=== PATIENT | female | born 1980 | race Caucasian/White ===

== ENCOUNTER 2017-01-03 17:29 | Emergency (ER) ==
[2017-01-03 17:38] VITALS: BP 114/83; TEMP 98.6; BMI 28.3
[2017-01-03] MEDS ORDERED: LIDOCAINE 1 % AMP 5 ML (SUTURES) ONE (17:45)
[2017-01-03] MEDS ORDERED: TETANUS DIPHTHERIA TOXOIDS IM ONE ×2 (18:29→18:56)
[2017-01-03] MEDS ORDERED: LIDOCAINE 1 % AMP 5 ML (SUTURES) SUBCUT STA (18:30)
--- NOTE | 2017-01-03 18:32 | ED.PDOC ---
General ED Provider: Dr. CAROL PARKS Chief Complaint: Knee Pain/Injury Stated Complaint: knee injury and laceration right knee Time Seen by Physician: 17:30 Mode of Arrival: Walk-In Information Source: Patient Exam Limitations: No limitations Primary Care Provider: JAROCHO AMARO Nursing and Triage Documentation Reviewed and Agree: Yes Review of Systems - Review Of Systems Constitutional: Reports: No symptoms Eyes: Reports: No symptoms Ears, Nose, Mouth, Throat: Reports: No symptoms Respiratory: Reports: No symptoms Cardiac: Reports: No symptoms GI: Reports: No symptoms : Reports: No symptoms Musculoskeletal: Reports: No symptoms Skin: Reports: Other (laceration see photos) Neurological: Reports: No symptoms Endocrine: Reports: No symptoms Hematologic/Lymphatic: Reports: No symptoms All Other Systems: Reviewed and Negative Past Medical History - Past Medical History Previously Healthy: Yes Endocrine: Reports: None Cardiovascular: Reports: None Respiratory: Reports: None Hematological: Reports: None Gastrointestinal: Reports: None Genitourinary: Reports: None Neuro/Psych: Reports: None Musculoskeletal: Reports: Back Pain Cancer: Reports: None Last Menstrual Period: 5 YEARS AGO - Surgical History General Surgical History: Reports: Orthopedic - Family History Family History: Reports: Unknown - Social History Smoking Status: Never smoker Hx Substance Use: No Alcohol Screening: None - Immunizations Tetanus Shot up to Date: No Physical Exam - Physical Exam Appearance: Well-appearing, No pain distress, Well-nourished Eyes: GOYO, EOMI, Conjunctiva clear ENT: Ears normal, Nose normal, Oropharynx normal Respiratory: Airway patent, Breath sounds clear, Breath sounds equal, Respirations nonlabored Cardiovascular: RRR, Pulses normal, No rub, No murmur GI/: Soft, Nontender, No masses, Bowel sounds normal, No Organomegaly Musculoskeletal: Limited ROM (right knee please see photos) Skin: Warm, Dry, Normal color Neurological: Sensation intact, Motor intact, Reflexes intact, Cranial nerves intact, Alert, Oriented Psychiatric: Affect appropriate, Mood appropriate Procedures - Laceration/Wound Repair No standard instances Wound Description: Linear Wound Length (cm): 1.5 cm Wound Width: 3mm Wound Depth: 2mm Wound Explored: Clean Wound Irrigated: No Wound Prep: Saline, Hibiclens Anesthesia: Lidocaine (plain 4 ml) Wound Margins: Revised Wound Repaired With: Sutures Suture Size and Type: 3 nylon Number of Sutures: 6 Number of [place]: 0 Layer Closure?: No (please see photos before and after ) Critical Care Note - Critical Care Note Total Time (mins): 0 Course - Course Orders, Labs, Meds: Orders Category Date Time Status Lidocaine HCl/Pf [Lidocaine 1 % Amp 5 ml (Sutures)] MEDS 01/03/17 17:45 Discontinued 5 ml .ROUTE .STK-MED ONE Tetanus, Diphtheria Tox,Adult [Tetanus Diphtheria MEDS 01/03/17 18:29 Once Toxoids] 0.5 ml IM .ONCE ONE KNEE, RIGHT 4 VIEWS Stat RADS 01/03/17 18:29 Ordered Medications Generic Name Dose Route Start Last Admin Trade Name Freq PRN Reason Stop Dose Admin Tetanus/Diphtheria Toxoids 0.5 ml 01/03/17 18:29 Tetanus Diphtheria Toxoids IM 01/03/17 18:30 .ONCE ONE Vital Signs: Temp Pulse Resp BP Pulse Ox 01/03/17 17:30 98.6 F 86 20 114/83 97 Departure - Departure Time of Disposition: 18:33 Disposition: HOME SELF-CARE Discharge Problem: Knee pain, Injury of knee Laceration of right knee Qualifiers: Encounter type: initial encounter Qualifier Code: (S81.011A) Laceration without foreign body, right knee, initial encounter Instructions: Knee Pain (ED), Laceration (ED) Condition: Good Pt referred to PMD for follow-up: Yes Additional Instructions: Please call your Family Physician as soon as possible to schedule a follow-up appointment. Prescriptions: Hydrocodone/Acetaminophen [[place] 10-325 Tablet] 1 each PO Q8HR #7 tablet Allergies/Adverse Reactions: Allergies No Known Allergies Allergy (Verified 01/03/17 17:40) Home Medications: Ambulatory Orders Levonorgestrel [Mirena] 1 each VAGINAL DIRECTED 01/05/13 Hydrocodone/Acetaminophen [[place] 10-325 Tablet] 1 each PO Q8HR #7 tablet
--- NOTE | 2017-01-04 07:42 | DI ---
EXAM: Four views of the right knee HISTORY: Trauma/laceration. COMPARISON: Left knee x-rays 06/04/2012 FINDINGS: Medial compartment is mildly narrowed. The lateral compartment is unremarkable. The enciso lla is normal in position and appearance. There is no lytic or blastic lesion. No fracture or disl ocation is identified. The soft tissues are unremarkable. IMPRESSION: Minimal medial compartmental narrowing
== END 2017-01-03 18:54 | disposition home or self-care (01) ==
LOC: ED 17:29
DX: S81.011A Laceration without foreign body, right knee, initial encounter (principal); M25.561 Pain in right knee
CPT/HCPCS: 90471; 99283

== ENCOUNTER 2017-01-10 08:33 | Outpatient (CLI) ==
--- NOTE | 2017-01-10 11:41 | MRI ---
EXAM: MRI of the right knee without contrast COMPARISON: Right knee radiographs 01/03/2017. HISTORY: Right knee pain with decreased range of motion. Healing wound in the region of the patell a after falling on a cinder block. TECHNIQUE: Multiplanar noncontrast MR images of the right knee were acquired using a 1.2 Verna magn et. FINDINGS: There is intrasubstance degeneration of the medial meniscus without a surfacing tear. In trasubstance degeneration of the lateral meniscus with a radial tear involving the free edge at the body through the anterior horn/body junction as seen on image 5 of the sagittal series and image 20 of the axial series. Intact anterior and posterior cruciate ligament fibers are identified. The medial collateral ligame nt, lateral collateral ligament complex and posterolateral corner ligaments are intact. Mild distal quadriceps and minimal patellar tendinosis. No abnormal subluxation of the patella. Subcutaneous edema anteriorly, medially and laterally with ill-defined subcutaneous fluid anteriorly related to s oft tissue contusion. No focal drainable fluid collection. Thinning and deep fissuring of the cartilage along the lateral facet and median ridge of the patella with a 3 mm cartilage flap. Subchondral edema that site. No evidence of an acute fracture. Cysti c degenerative changes within the posteromedial aspect of the medial femoral condyle. Small joint e ffusion. Slit-like popliteal cyst. No osteochondral body within the joint. IMPRESSION: 1. Radial tear involving the lateral meniscus as described. Correlate with physical examination. 2. Patellar chondrosis with flap formation. 3. Patellar/quadriceps tendinosis. 4. Subcutaneous edema and ill-defined subcutaneous fluid anteriorly without a drainable fluid colle ction. 5. Small joint effusion. Slit-like popliteal cyst.
== END 2017-01-10 08:34 | disposition home or self-care (01) ==
LOC: RAD 08:33
PROVIDERS: ATTEND Family Medicine
DX: M25.561 Pain in right knee (principal)

== ENCOUNTER 2017-07-12 08:36 | Emergency (ER) ==
[2017-07-12 08:40] VITALS: BP 126/76; TEMP 97.7; BMI 30.7
--- NOTE | 2017-07-12 09:19 | DI ---
EXAM: Three views of the left ankle. History: Left ankle trauma. Findings: No acute fracture or dislocation. No abnormal calcifications or radiopaque foreign bodies . Joint spaces are preserved. Impression: No acute osseous abnormalities
--- NOTE | 2017-07-12 09:20 | DI ---
EXAM: Three views of the left foot. History: Left foot trauma. Findings: No acute fracture or dislocation. No abnormal calcifications or radiopaque foreign bodies . Joint spaces are preserved. Impression: No acute osseous abnormality
--- NOTE | 2017-07-12 09:27 | ED.PDOC ---
General ED Provider: Dr. CAROL PARKS Chief Complaint: Ankle Pain/Injury Stated Complaint: ankle pain Time Seen by Physician: 08:40 (has been walking on it x 14 days ) Mode of Arrival: Walk-In Information Source: Patient Exam Limitations: No limitations Primary Care Provider: JAROCHO AMARO Referred to ED by: Other (no new injury ) Nursing and Triage Documentation Reviewed and Agree: Yes (seen with edison at all times ) Reviewed sepsis parameters & appropriate labs ordered?: Yes (injury was aabout 2 weks ago) System Inflammatory Response Syndrome: Not Applicable Sepsis Protocol: For patient's 13 years and over: Temp is 96.8 and below OR 101 and greater Pulse >90 BPM Resp >20/minute Acutely Altered Mental Status Are patient's symptoms suggestive of a new infection, such as: -Pneumonia -Skin, Soft Tissue -Endocarditis -UTI -Bone, Joint Infection -Implantable Device -Acute Abdominal Infection -Wound Infection -Meningitis -Blood Stream Catheter Infection -Unknown System Inflammatory Response Syndrome: Not Applicable Review of Systems - Review Of Systems Constitutional: Reports: No symptoms Eyes: Reports: No symptoms Ears, Nose, Mouth, Throat: Reports: No symptoms Respiratory: Reports: No symptoms Cardiac: Reports: No symptoms GI: Reports: No symptoms : Reports: No symptoms Musculoskeletal: Reports: Joint pain Skin: Reports: No symptoms Neurological: Reports: No symptoms Endocrine: Reports: No symptoms Hematologic/Lymphatic: Reports: No symptoms All Other Systems: Reviewed and Negative Past Medical History - Past Medical History Previously Healthy: Yes Endocrine: Reports: None Cardiovascular: Reports: None Respiratory: Reports: None Hematological: Reports: None Gastrointestinal: Reports: None Genitourinary: Reports: None Neuro/Psych: Reports: None Musculoskeletal: Reports: Back Pain Cancer: Reports: None Last Menstrual Period: iud - Surgical History General Surgical History: Reports: Orthopedic - Family History Family History: Reports: Unknown - Social History Smoking Status: Never smoker Hx Substance Use: No Alcohol Screening: None Physical Exam - Physical Exam Appearance: Well-appearing, No pain distress, Well-nourished Eyes: GOYO, EOMI, Conjunctiva clear ENT: Ears normal, Nose normal, Oropharynx normal Respiratory: Airway patent, Breath sounds clear, Breath sounds equal, Respirations nonlabored Cardiovascular: RRR, Pulses normal, No rub, No murmur GI/: Soft, Nontender, No masses, Bowel sounds normal, No Organomegaly Musculoskeletal: Normal strength Skin: Warm, Dry, Normal color Neurological: Sensation intact, Motor intact, Reflexes intact, Cranial nerves intact, Alert, Oriented Psychiatric: Affect appropriate, Mood appropriate Interpretation - Radiology Interpretation Radiology Interpretation By: Radiologist Radiology Results: No acute changes Critical Care Note - Critical Care Note Total Time (mins): 0 Course - Course Orders, Labs, Meds: Orders Category Date Time Status ANKLE, LEFT MIN 3 VIEWS Stat RADS 07/12/17 08:52 Completed FOOT, LEFT 3 VIEWS Stat RADS 07/12/17 08:52 Completed Vital Signs: Temp Pulse Resp BP Pulse Ox 07/12/17 08:37 97.7 F 78 16 126/76 99 Departure - Departure Time of Disposition: 09:27 Disposition: HOME SELF-CARE Discharge Problem: Ankle pain, Left ankle sprain Instructions: Ankle Sprain (ED) Condition: Good Pt referred to PMD for follow-up: Yes IPMP verified?: Yes Allergies/Adverse Reactions: Allergies No Known Allergies Allergy (Verified 07/12/17 08:40) Home Medications: Ambulatory Orders Levonorgestrel [Mirena] 1 each VAGINAL DIRECTED 01/05/13
== END 2017-07-12 09:33 | disposition home or self-care (01) ==
LOC: ED 08:36
DX: S93.402A Sprain of unspecified ligament of left ankle, initial encounter (principal); X50.1XXA Overexertion from prolonged static or awkward postures, initial encounter
CPT/HCPCS: 99283

== ENCOUNTER 2017-08-11 14:16 | Emergency (ER) ==
[2017-08-11 14:23] VITALS: BP 127/76; TEMP 98.6; BMI 30.4
[2017-08-11] MEDS ORDERED: TORADOL IM STA (14:32)
--- NOTE | 2017-08-11 14:34 | ED.PDOC ---
General ED Provider: Dr. JAROCHO STEVEN MD Chief Complaint: Fall Stated Complaint: fell at home down stairs, hitting buttocks all th eway down. Time Seen by Physician: 02:30 Mode of Arrival: Walk-In Information Source: Patient Exam Limitations: No limitations Primary Care Provider: JAROCHO AMARO Nursing and Triage Documentation Reviewed and Agree: Yes Reviewed sepsis parameters & appropriate labs ordered?: Yes System Inflammatory Response Syndrome: Not Applicable Sepsis Protocol: For patient's 13 years and over: Temp is 96.8 and below OR 101 and greater Pulse >90 BPM Resp >20/minute Acutely Altered Mental Status Are patient's symptoms suggestive of a new infection, such as: -Pneumonia -Skin, Soft Tissue -Endocarditis -UTI -Bone, Joint Infection -Implantable Device -Acute Abdominal Infection -Wound Infection -Meningitis -Blood Stream Catheter Infection -Unknown Musculoskeletal Complaint Exam - Back Pain Complaint/Exam Mechanism of Injury: Reports: Trauma Symptoms Are: Still present Timing: Constant Episodes Lasting: Hours Current Severity: Moderate Location: Reports: Discrete Character: Reports: Aching Aggravating: Reports: Bending Alleviating: Reports: None TAD Risk Factors: Reports: None AAA Risk Factors: Reports: None Cauda Equina Risk Factors: Reports: None Epidural Abcess Risk Factors: Reports: None Related Surgical History: Reports: None Focal Tenderness: Yes (L2 area) Review of Systems - Review Of Systems Constitutional: Reports: No symptoms Eyes: Reports: No symptoms Ears, Nose, Mouth, Throat: Reports: No symptoms Respiratory: Reports: No symptoms Cardiac: Reports: No symptoms GI: Reports: No symptoms : Reports: No symptoms Musculoskeletal: Reports: Back pain Skin: Reports: No symptoms Neurological: Reports: No symptoms Endocrine: Reports: No symptoms Hematologic/Lymphatic: Reports: No symptoms All Other Systems: Reviewed and Negative Past Medical History - Past Medical History Previously Healthy: Yes Endocrine: Reports: None Cardiovascular: Reports: None Respiratory: Reports: None Hematological: Reports: None Gastrointestinal: Reports: None Genitourinary: Reports: None Neuro/Psych: Reports: None Musculoskeletal: Reports: Back Pain Cancer: Reports: None Last Menstrual Period: unknown: no cycles with UID - Surgical History General Surgical History: Reports: Orthopedic - Family History Family History: Reports: Unknown - Social History Smoking Status: Never smoker Hx Substance Use: No Alcohol Screening: None Physical Exam - Physical Exam Appearance: Ill-appearing Ill-appearing: Mild Pain Distress: Mild Eyes: GOYO, EOMI, Conjunctiva clear ENT: Ears normal, Nose normal, Oropharynx normal Respiratory: Airway patent, Breath sounds clear, Breath sounds equal, Respirations nonlabored Cardiovascular: RRR, Pulses normal, No rub, No murmur GI/: Soft, Nontender, No masses, Bowel sounds normal, No Organomegaly Musculoskeletal: Limited ROM (slightly with bending) Skin: Warm, Dry, Normal color Neurological: Sensation intact, Motor intact, Reflexes intact, Cranial nerves intact, Alert, Oriented Psychiatric: Affect appropriate, Mood appropriate Critical Care Note - Critical Care Note Total Time (mins): 0 Course - Course Orders, Labs, Meds: Orders Category Date Time Status Ketorolac Tromethamine [Toradol] MEDS 08/11/17 14:32 Discontinued 60 mg IM ONCE STA LUMBAR SPINE, 2 OR 3 VIEWS Stat RADS 08/11/17 14:31 Completed Medications Discontinued Medications Generic Name Dose Route Start Last Admin Trade Name Freq PRN Reason Stop Dose Admin Ketorolac Tromethamine 60 mg 08/11/17 14:32 08/11/17 14:40 Toradol IM 08/11/17 14:33 60 mg ONCE STA Administration Vital Signs: Temp Pulse Resp BP Pulse Ox 08/11/17 14:17 98.6 F 85 20 127/76 98 Departure - Departure Time of Disposition: 16:55 Disposition: HOME SELF-CARE Discharge Problem: Back pain Qualifiers: Back pain location: low back pain Chronicity: acute Back pain laterality: bilateral Condition: Fair Pt referred to PMD for follow-up: Yes IPMP verified?: No Allergies/Adverse Reactions: Allergies No Known Allergies Allergy (Verified 08/11/17 14:23) Home Medications: Ambulatory Orders Levonorgestrel [Mirena] 1 each VAGINAL DIRECTED 01/05/13
--- NOTE | 2017-08-11 15:05 | DI ---
Exam: Three x-rays of the lumbar spine. Comparison: None available. Reason for exam: Fell. FINDINGS: No acute fracture or listhesis. There is a normal appearing lumbar lordotic curve. No si gnificant degenerative disease. Intrauterine device is seen within the pelvis. Impression: No acute fracture or listhesis in the lumbar spine.
== END 2017-08-11 16:50 | disposition home or self-care (01) ==
LOC: ED 14:16
DX: M54.5 Low back pain (principal); W10.9XXA Fall (on) (from) unspecified stairs and steps, initial encounter
CPT/HCPCS: 96372; 99283

== ENCOUNTER 2017-11-04 10:03 | Emergency (ER) | payer OTHER ==
[2017-11-04 10:08] VITALS: BP 110/61; TEMP 98.6; BMI 32.1
--- NOTE | 2017-11-04 10:26 | ED.PDOC ---
General ED Provider: Dr. JAROCHO ART Chief Complaint: Sore Throat Stated Complaint: Severe Sore Throat: HPI : Onset- mild last evening; awakened this AM with severe throat describes as having razor blades in throat. Has Mild dry cough. Denies fever, chills, night sweats. Has not taken any meds. Time Seen by Physician: 10:15 Mode of Arrival: Walk-In Information Source: Patient Exam Limitations: No limitations Primary Care Provider: JAROCHO AMARO Nursing and Triage Documentation Reviewed and Agree: Yes Reviewed sepsis parameters & appropriate labs ordered?: Yes System Inflammatory Response Syndrome: Not Applicable Sepsis Protocol: For patient's 13 years and over: Temp is 96.8 and below OR 101 and greater Pulse >90 BPM Resp >20/minute Acutely Altered Mental Status Are patient's symptoms suggestive of a new infection, such as: -Pneumonia -Skin, Soft Tissue -Endocarditis -UTI -Bone, Joint Infection -Implantable Device -Acute Abdominal Infection -Wound Infection -Meningitis -Blood Stream Catheter Infection -Unknown Review of Systems - Review Of Systems Constitutional: Reports: No symptoms Eyes: Reports: No symptoms Ears, Nose, Mouth, Throat: Reports: No symptoms, Throat pain, Throat swelling Respiratory: Reports: No symptoms Cardiac: Reports: No symptoms GI: Reports: No symptoms : Reports: No symptoms Musculoskeletal: Reports: No symptoms Skin: Reports: No symptoms Neurological: Reports: No symptoms Endocrine: Reports: No symptoms Hematologic/Lymphatic: Reports: No symptoms All Other Systems: Reviewed and Negative Past Medical History - Past Medical History Previously Healthy: Yes Endocrine: Reports: None Cardiovascular: Reports: None Respiratory: Reports: None Hematological: Reports: None Gastrointestinal: Reports: None Genitourinary: Reports: None Neuro/Psych: Reports: None Musculoskeletal: Reports: Back Pain Cancer: Reports: None Last Menstrual Period: none - Surgical History General Surgical History: Reports: Orthopedic - Family History Family History: Reports: Unknown - Social History Smoking Status: Never smoker Hx Substance Use: No Alcohol Screening: None Physical Exam - Physical Exam Appearance: Well-appearing, No pain distress, Well-nourished Ill-appearing: Mild Pain Distress: Mild Eyes: GOYO, EOMI, Conjunctiva clear ENT: Ears normal, Nose normal, Erythema (oralpharyngeal region; no exudated. post pharyngeal lymphoid prominence.) Neck: Supple (no palpable thyromegaly or lymphadenopathy. no supraclavicular nodes) Respiratory: Airway patent, Breath sounds clear, Breath sounds equal, Respirations nonlabored Cardiovascular: RRR, Pulses normal, No rub, No murmur GI/: Soft, Nontender, No masses, Bowel sounds normal, No Organomegaly Musculoskeletal: Normal strength, ROM intact, No edema, No calf tenderness Skin: Warm, Dry, Normal color Neurological: Sensation intact, Motor intact, Reflexes intact, Cranial nerves intact, Alert, Oriented Psychiatric: Affect appropriate, Mood appropriate Re-Evaluation - Re-Evaluation Time of Re-Evaluation: 11:50 Status: Unchanged Vital Signs Stable: Yes Appearance: NAD Lungs: Clear Skin: Warm and Dry Neuro: Alert and Oriented X3 CV: RRR Additional Comments: Explained to patient strep screen negative. Critical Care Note - Critical Care Note Total Time (mins): 0 Course - Course Vital Signs: Temp Pulse Resp BP Pulse Ox 11/04/17 10:04 98.6 F 83 16 110/61 97 Departure - Departure Time of Disposition: 11:55 Disposition: HOME SELF-CARE Discharge Problem: Pharyngitis Instructions: Pharyngitis (ED) Condition: Good Pt referred to PMD for follow-up: Yes (PCP) IPMP verified?: No Additional Instructions: May take Tylenol 325 mg 2 every 6 hrs. for pain relief Gargle with warm salt water Follow up PCP 1 wk Prescriptions: Azithromycin [Zithromax] 250 mg PO DAILY #6 tablet Allergies/Adverse Reactions: Allergies No Known Allergies Allergy (Verified 11/04/17 10:08) Home Medications: Ambulatory Orders Levonorgestrel [Mirena] 1 each VAGINAL DIRECTED 01/05/13 Azithromycin [Zithromax] 250 mg PO DAILY #6 tablet 11/04/17 Disposition Discussed With: Patient, Family
== END 2017-11-04 12:16 | disposition home or self-care (01) ==
LOC: ED 10:03
DX: J02.9 Acute pharyngitis, unspecified (principal)
CPT/HCPCS: 87651; 99283

== ENCOUNTER 2017-12-27 14:53 | Outpatient (CLI) | END 2017-12-27 14:54 | disposition home or self-care (01) | LOC: FCC-LAB 14:53 | PROVIDERS: ATTEND Family Medicine | DX: F41.9 Anxiety disorder, unspecified (principal); Z68.32 Body mass index [BMI] 32.0-32.9, adult | CPT/HCPCS: 36415; 80053; 84443; 85025 ==

== ENCOUNTER 2018-08-20 16:11 | Outpatient (CLI) | END 2018-08-20 16:12 | disposition home or self-care (01) | LOC: RHC-LAB 16:11 → FCC-LAB 16:12 | PROVIDERS: ATTEND Nurse Practitioner Family | DX: J02.9 Acute pharyngitis, unspecified (principal) | CPT/HCPCS: 87651 ==

== ENCOUNTER 2018-08-27 07:56 | Emergency (ER) ==
[2018-08-27 08:05] VITALS: BP 132/68; TEMP 100.1; BMI 33.8
--- NOTE | 2018-08-27 09:04 | ED.PDOC ---
General ED Provider: Dr. CAROL PARKS Chief Complaint: Sore Throat Stated Complaint: flu like sympt not improving on antibiotics and prednisone Time Seen by Physician: 08:00 (seen with edison at all times ) Mode of Arrival: Walk-In Information Source: Patient Exam Limitations: No limitations Primary Care Provider: MECHE MILLER Nursing and Triage Documentation Reviewed and Agree: Yes Does patient meet sepsis criteria?: No System Inflammatory Response Syndrome: Not Applicable Sepsis Protocol: For patient's 13 years and over: Temp is 96.8 and below OR 101 and greater Pulse >90 BPM Resp >20/minute Acutely Altered Mental Status Are patient's symptoms suggestive of a new infection, such as: -Pneumonia -Skin, Soft Tissue -Endocarditis -UTI -Bone, Joint Infection -Implantable Device -Acute Abdominal Infection -Wound Infection -Meningitis -Blood Stream Catheter Infection -Unknown EENT Complaint Exam - Throat Complaint/Exam Onset/Duration: 1 week on augmentin and prednisone Symptoms Are: Still present Timimg: Intermittent Initial Severity: Moderate Current Severity: Mild Aggravating: Reports: None Alleviating: Reports: None Associated Signs and Symptoms: Reports: Cough, Nasal congestion (throat pain). Denies: Fever, Dysphagia, Drooling, Foreign body sensation, Chills, Wheezing, Hoarseness, Sinus discomfort, Difficulty breathing, Lethargy, Irritability, Decreased activity, Vomiting, Diarrhea, Decreased hearing, Ear drainage Uvula Midline: Yes May-tonsillar Fluctuence: No Scarlatinaform Rash Present: No Lesions: Absent: Lip, Gums, Tongue, Buccal Mucosa, Pharynx Exanthem: Absent: Lip, Gums, Tongue, Buccal Mucosa, Pharynx Vesicles: Absent: Lip, Gums, Tongue, Buccal Mucosa, Pharynx Stridor Present: No Sinus Tenderness Present: No Tonsillar Hypertrophy Present: No Tonsillar Exudate Present: No May-tonsillar Swelling Present: No Adenopathy Present: No Splenomegaly Present: No Differential Diagnoses: Pharyngitis Review of Systems - Review Of Systems Constitutional: Reports: Malaise Eyes: Reports: No symptoms Ears, Nose, Mouth, Throat: Reports: Throat pain Respiratory: Reports: Cough Cardiac: Reports: No symptoms GI: Reports: No symptoms : Reports: No symptoms Musculoskeletal: Reports: No symptoms Skin: Reports: No symptoms Neurological: Reports: No symptoms Endocrine: Reports: No symptoms Hematologic/Lymphatic: Reports: No symptoms All Other Systems: Reviewed and Negative Past Medical History - Past Medical History Previously Healthy: Yes Endocrine: Reports: None Cardiovascular: Reports: None Respiratory: Reports: None Hematological: Reports: None Gastrointestinal: Reports: None Genitourinary: Reports: None Neuro/Psych: Reports: None Musculoskeletal: Reports: Back Pain Cancer: Reports: None Last Menstrual Period: Mirena - Surgical History General Surgical History: Reports: Orthopedic - Family History Family History: Reports: Unknown - Social History Smoking Status: Never smoker Hx Substance Use: No Alcohol Screening: None - Immunizations Tetanus Shot up to Date: Yes Physical Exam - Physical Exam Appearance: Well-appearing, No pain distress, Well-nourished Eyes: GOYO, EOMI, Conjunctiva clear ENT: Erythema Respiratory: Airway patent, Breath sounds clear, Breath sounds equal, Respirations nonlabored Cardiovascular: RRR, Pulses normal, No rub, No murmur GI/: Soft, Nontender, No masses, Bowel sounds normal, No Organomegaly Musculoskeletal: Normal strength, ROM intact, No edema, No calf tenderness Skin: Warm, Dry, Normal color Neurological: Sensation intact, Motor intact, Reflexes intact, Cranial nerves intact, Alert, Oriented Psychiatric: Affect appropriate, Mood appropriate Critical Care Note - Critical Care Note Total Time (mins): 0 Course - Course Orders, Labs, Meds: Lab Review 08/27/18 08/27/18 08:27 08:27 Serum , Qual Negative Infectious Monona Assay Negative Orders Category Date Time Status MOLECULAR GROUP A STREP Stat LAB 08/27/18 08:18 Completed MONONUCLOSIS SCREEN Stat LAB 08/27/18 08:27 Completed SERUM TEST [SERUM ] Stat LAB 08/27/18 08:27 Completed CHEST, 2 VIEWS PA & LAT Stat RADS 08/27/18 08:18 Ordered NECK, SOFT TISSUE Stat RADS 08/27/18 08:19 Ordered Vital Signs: Temp Pulse Resp BP Pulse Ox 08/27/18 07:57 100.1 F H 79 16 132/68 97 Departure - Departure Time of Disposition: 09:30 (with at bedside discussed all the results and gave copy of all xrays and labs ) Disposition: HOME SELF-CARE Discharge Problem: Sore throat symptom, Cough Instructions: Cold Symptoms (ED), Acute Cough (ED), How Your Lungs Work (ED) Condition: Good Pt referred to PMD for follow-up: Yes IPMP verified?: No Additional Instructions: Please call your Family Physician as soon as possible to schedule a follow-up appointment. Allergies/Adverse Reactions: Allergies No Known Allergies Allergy (Verified 08/27/18 08:09) Home Medications: Ambulatory Orders Levonorgestrel [Mirena] 1 each VAGINAL DIRECTED 01/05/13 Disposition Discussed With: Patient, Family
--- NOTE | 2018-08-27 09:12 | DI ---
EXAM: Two views of the chest. History: Cough. Findings: Heart size is within normal limits. No focal consolidation. No appreciable pleural fluid and no pneumothorax. No acute osseous abnormalities. Impression: No acute cardiopulmonary process.
--- NOTE | 2018-08-27 09:14 | DI ---
EXAM: Two views of the soft tissue neck. History: Neck pain. Findings: No acute fracture or subluxation of the cervical spine. No prevertebral soft tissue swell ing. Predental space is not widened. Epiglottis is not thickened. Disc space heights are preserved . Impression: No acute findings
== END 2018-08-27 09:36 | disposition home or self-care (01) ==
LOC: ED 07:56
DX: J02.9 Acute pharyngitis, unspecified (principal); R05 Cough; R09.81 Nasal congestion; R53.81 Other malaise
CPT/HCPCS: 36415; 84703; 86308; 87651; 99283